=== PATIENT | female | born 1930 | race Hispanic/Latino ===

== ENCOUNTER 2018-09-24 11:41 | Emergency (ER) | payer MEDICARE, OTHER ==
[~2018-09-24] VITALS: Ht 147.3 cm; Wt 82.6 kg
[~2018-09-24 11:41] MED LIST: AMLODIPINE BESY10 MG PO; ASCORBIC ACID250 MG PO; CARVEDILOL3.125 MG PO; CEFTIN PO; FERROUS SULFAT325 MG PO; FUROSEMIDE40 MG PO; OMEPRAZOLE40 MG PO; PANTOPRAZOLE SO40 MG PO; POTASSIUM CHLO20 ME1 PO
--- OUTSIDE RECORDS SUMMARY | 2018-09-24 11:44 | XMS REPORT ---
[facility] Address Unknown Phone Unavailable Care Team Providers Care Poiser Name Role Phone IRA ROTHMAN Unavailable Unavailable Problems This patient has no known problems. Allergies, Adverse Reactions, Alerts This patient has no known allergies or adverse reactions. Medications This patient has no known medications. Results Test Description Test Time Test Comments Text Results Atomic Results Result Comments CHEST SINGLE (PORTABLE) [place] [address] Patient Name: IGNACIO GREEN MR #: [id number] : 1930 Age/Sex: 86/F Req #: [id number] Adm Physician: IRA ROTHMAN MD Ordered by: JUSTIN GUTIÉRREZ SENIOR SOUS CHEF Report #: [id number] Location: MED/SURG Room/Bed: [facility] Procedure: [id number] DX/CHEST SINGLE (PORTABLE) Exam Date: 05/05/17 Exam Time: 1735 REPORT STATUS: Signed EXAM: CHEST SINGLE (PORTABLE) DATE: 05/05/2017 5:22 PM INDICATION: Possible aspiration COMPARISON: 05/01/2017 FINDINGS: Moderate enlargement of the cardiac silhouette, possibly partially related to low lung volumes. There is obscuration of the hemidiaphragms with airspace opacities in the mid and lower lungs. Surgical anchors left humeral head noted. IMPRESSION: Body habitus and low lung volumes limit evaluation. Cardiomegaly and airspace opacities suggest edema. Small effusions suspected. Basilar airspace opacities are more conspicuous, particularly on the right. While this may be technical in nature. Developing pneumonia, to include aspiration, should be considered. Signed by: Dr. Meir Martinez MD on 05/05/2017 5:43 PM Dictated By: MEIR MARTINEZ MD 42 Transcribed By: NATHALIE on 05/05/171742 COPY TO: JUSTIN GUTIÉRREZ NP ECHO COMPLETE (ECHOCARDIOGRAM) [place] [address] Patient Name : IGNACIO GREEN MR #: [id number] : 1930 Age/Sex: 86/F Adm Physician : IRA ROTHMAN MD Admit Date : 05/01/17 Location : MED/SURG Room/Bed : [facility] REPORT: Cardiology Report DATE OF STUDY: May 01, 2017 ECHOCARDIOGRAM M-MODE: Dilated left atrium. Left ventricular hypertrophy. Normal contractility. Aortic sclerosis. Normal mitral and tricuspid valves. No pericardial effusion. SECTOR SCAN: Dilated left atrium. Left ventricular hypertrophy. Normal contractility. Ejection fraction is approximately 50%. Aortic valve is sclerotic. Mitral and tricuspid valves are grossly normal. There is no pericardial effusion. CARDIAC DOPPLER STUDY WITH COLOR: There are 1 to 2+ aortic regurgitation, 2+ mitral regurgitation, 2 to 3+ tricuspid regurgitation, 2+ pulmonic regurgitation. Pulmonary artery systolic pressure estimated at 69 mmHg. CONCLUSIONS 1. Moderate to moderately severe tricuspid regurgitation with moderate pulmonic regurgitation with severe pulmonary hypertension. Pulmonary artery systolic pressure estimated at 69 m mHg. 2. Aortic sclerosis with mild to moderate aortic regurgitation. 3. Moderate mitral regurgitation with dilated left atrium. 4. Left ventricular hypertrophy with ejection fraction of approximately 55%. Job#: [id number] cc: IRA ROTHMAN MD Signature Date Dictated By: LUCI MAYA MD Transcribed By: EDS on 05/02/17 <Electronically signed by LUCI MAYA MD><<Signature on File>>05/08/17 0841 COPY TO: CHEST SINGLE (PORTABLE) [place] [address] Patient Name: IGNACIO GREEN MR #: [id number] : 1930 Age/Sex: 86/F Req #: [id number] Adm Physician: Ordered by: GONZALO HOPPER MD Report #: [id number] Location: ER Room/Bed: Procedure: [id number] DX/CHEST SINGLE (PORTABLE) Exam Date: 05/01/17 Exam Time: 1250 REPORT STATUS: Signed PROCEDURE: CHEST SINGLE (PORTABLE) COMPARISON: None. INDICATIONS: SHORTNESS OF BREATH, BILATERAL LEG SWELLING FINDINGS: Lines and tubes: None Moderate enlargement of the cardiac silhouette. Central pulmonary vascular prominence. Trace bilateral pleural effusions. No focal pulmonary opacity or pneumothorax. Upper abdomen unremarkable with no free air. There are degenerative changes of the shoulders. There are screws in the left humeral head. There is apparent medial subluxation of the right humeral head. CONCLUSION: 1. Moderate cardiomegaly with central pulmonary vascular prominence. Trace bilateral pleural effusions. 2. Apparent medial subluxation of the right humeral head. Dictated by: Jannie Collier M.D. on 05/01/2017 at 14:21 Electronically approved by: Jannie Collier M.D. on 05/01/2017 at 14:21 Dictated By: JANNIE COLLIER MD 1421 Transcribed By: BOGDAN on 05/01/17 1421 COPY TO: GONZALO HOPPER MD
[2018-09-24] MEDS ORDERED: BUPIVACAINE 0.25% 30ML SDV INJ ONE (13:24)
[2018-09-24 14:08] LABS: BASOPHILS # (AUTO) 0.1 (0.0-0.1); BASOPHILS % 1.2 % (0.0-1.0); EOSINOPHILS # (AUTO) 0.2 (0.0-0.4); EOSINOPHILS % 3.2 % (0.0-6.0); HEMATOCRIT 23.1 % (34.2-44.1); LYMPHOCYTES # (AUTO) 1.1 (1.0-3.2); LYMPHOCYTES % 17.5 % (18.0-39.1); MEAN CORPUSCULAR HEMOGLOBIN 18.9 pg (28-32); MEAN CORPUSCULAR VOLUME 65.1 fL (81-99); MONOCYTES # (AUTO) 0.7 (0.2-0.8); MONOCYTES % 10.3 % (4.4-11.3); NEUTROPHILS # (AUTO) 4.4 (2.1-6.9); NEUTROPHILS % 67.5 % (38.7-80.0); PLATELET COUNT 344 x10e3/uL (140-360); RED BLOOD COUNT 3.55 x10e6/uL (3.6-5.1); RED CELL DISTRIBUTION WIDTH 19.3 % (11.7-14.4)
[2018-09-24 14:15] LABS: HEMOGLOBIN 6.7 g/dL (12.0-16.0)
[2018-09-24 14:24] LABS: INR 0.99
[2018-09-24 14:25] LABS: PARTIAL THROMBOPLASTIN TIME 30.3 seconds (23.8-35.5)
[2018-09-24 14:34] LABS: ALANINE AMINOTRANSFERASE 10 IU/L (0-55); ALBUMIN 3.3 g/dL (3.5-5.0); ALBUMIN/GLOBULIN RATIO 0.8 (0.8-2.0); ALKALINE PHOSPHATASE 127 IU/L (40-150); ANION GAP 14.3 mmol/L (8-16); BLOOD UREA NITROGEN 23 mg/dL (7-26); BUN/CREATININE RATIO 29 (6-25); CALCIUM 9.1 mg/dL (8.4-10.2); CARBON DIOXIDE 19 mmol/L (22-29); CHLORIDE 104 mmol/L (98-107); CREATININE, SERUM 0.79 mg/dL (0.57-1.11); EST GLOMERULAR FILTRATION RATE > 60 ML/MIN (60-); GLUCOSE 86 mg/dL (74-118); POTASSIUM 4.3 mmol/L (3.5-5.1); SODIUM 133 mmol/L (136-145)
[2018-09-24] MEDS ORDERED: SODIUM CHLORIDE 0.9% 250ML 250 ML IV ONE (15:00)
[2018-09-24] MEDS ORDERED: IRON SUCROSE 100 MG in SODIUM CHLORIDE 0.9% 100 ML 100 ML IV SCH (15:30)
[2018-09-24] MEDS ORDERED: ACETAMINOPHEN 325 MG TAB PO PRN (15:30)
[2018-09-24] MEDS ORDERED: FUROSEMIDE INJ 10 MG/ML 2 ML VIAL IV NR ×2 (15:30→21:00)
[2018-09-24] MEDS ORDERED: ONDANSETRON HCL INJ 2MG/ML 2ML 2 MG/ML VIAL IV PRN (15:30)
[2018-09-24] MEDS ORDERED: CLONIDINE HCL 0.1 MG TAB PO PRN (15:30)
[2018-09-24] MEDS ORDERED: PANTOPRAZOLE SOD 40 MG TABEC PO SCH (16:30)
--- NOTE | 2018-09-24 19:00 | NUR ---
to room on walking rounds. iv to r upper arm noted infiltrated. swelling noted to surrounding tissue. iv dc'd by day nurse c gauze dressing applied. restarted 20 ga iv to l hand x 1 attempt. er md informed that iv to r arm infiltrated and that swelling noted to surrounding tissue.
--- NOTE | 2018-09-24 20:00 | NUR ---
SOFTWARE TEAM LEADER TO ROOM TO ASSESS SITE OF PREVIOUSLY INFILTRATED IV. SWELLING NOTED DECREASED. INSTRUCTED TO ELEVATE RUE AND APPLY WARM COMPRESS. PT DENIES PAIN TO R ARM. PULSES PALPABLE. CAP REFILL LESS THAN 3 SECS. RUE ELEVATED ON PILLOW, WARM COMPRESS APPLIED PER ORDERS.
[2018-09-24] MEDS ORDERED: SODIUM CHLORIDE 0.9% 250ML 250 ML ONE (20:17)
[2018-09-25 04:13] LABS: HEMATOCRIT 27.7 % (34.2-44.1); HEMOGLOBIN 8.5 g/dL (12.0-16.0)
[2018-09-25 04:27] VITALS: BP 137/52
== END 2018-09-25 04:31 | disposition home or self-care (01) ==
LOC: ER 11:41
DX: D50.0 Iron deficiency anemia secondary to blood loss (chronic) (principal); I10 Essential (primary) hypertension
CPT/HCPCS: 36415; 80053; 85014; 85018; 85025; 85610; 85730; 86850; 86900; 86920; 99283; J1756; J1940; J7050; P9016